=== PATIENT | female | born 1995 | race Caucasian/White ===

== ENCOUNTER 2017-04-24 03:33 | Emergency (ER) | payer OTHER ==
--- NOTE | 2017-04-24 05:37 | ED CLINICAL REPORT ---
Clinical Report - Physicians/Mid Levels [facility] [address] [place] [address] 04/24/2017 3:35 Patient: ELVIRA MARSH Time Seen: 04:00 Apr 24 2017. Arrived- By private vehicle. Historian- patient. CPT: ER phys charges level 4 (#[id number]). HISTORY OF PRESENT ILLNESS Chief Complaint: ABDOMINAL PAIN and VOMITING and NAUSEA. At its maximum, severity described as moderate. When seen in the E.D., severity described as moderate. Modifying factors. Not worsened by anything. Not relieved by anything. This started yesterday ( pt c/o abd and epigastric pain since yesterday, also with low back pain, N/V pt is 29 weeks .). She has had nausea. and is still present. It is described as "pain" and burning and it is described as located in the epigastric area. The patient has had nausea and loss of appetite. No vomiting or diarrhea. No recent travel. Similar symptoms previously: None. Recent medical care: Not recently seen/assessed. REVIEW OF SYSTEMS No constipation, black stools, hematemesis, difficulty with urination or pain with urination. No urinary frequency, fever, sore throat, chest pain or difficulty breathing. No cough, joint pain, skin rash, chills or back pain. Currently . All systems otherwise negative, except as recorded above. PAST HISTORY 2. Para 0. Currently : EDC: Jul. In 2nd trimester. confirmed with sonogram. Nephrolithiasis. Additional Surgeries: no known surgeries. Medications: None. Allergies: No Known Drug Allergy. SOCIAL HISTORY Never smoker. No alcohol use or drug use. ADDITIONAL NOTES The nursing notes have been reviewed. PHYSICAL EXAM Vital Signs: 04/24/2017 03:38 BP: 124/65. HR: 104. RR: 18. O2 saturation: 99%. Temp: 97.4 F. Pain level now: 9/10. Appearance: Alert. Anxious. Patient in mild distress. Eyes: Eyes normal inspection. ENT: Pharynx normal. Neck: Normal inspection. CVS: Normal heart rate and rhythm. Heart sounds normal. Pulses normal. Respiratory: No respiratory distress. Breath sounds normal. Chest nontender. Abdomen: Soft. Moderate tenderness in the epigastric area with guarding present. Bowel sounds normal. No mass. Back: Normal inspection. Skin: Skin warm. Normal skin color. No rash. Extremities: Extremities exhibit normal ROM. No lower extremity edema. Neuro: Oriented X 3. No motor deficit. No sensory deficit. LABS, X-RAYS, AND EKG Laboratory Tests: CBC w Diff: (NAVIN: 04/24/2017 03:45) ( [facility] 04/24/2017 04:23) Final results Test Result Flag Units (Reference) WHITE BLOOD COUNT 17.6 H K/uL (4.5-11.5) RED BLOOD COUNT 4.19 M/uL (4.00-5.20) HEMOGLOBIN 11.6 L gm/dL (12.0-16.0) HEMATOCRIT 35.8 L % (36.0-46.0) MEAN CELL VOLUME 86 fL (80-100) MEAN CORPUSCULAR HGB 28 pg (26-34) MEAN CORPUSCULAR HGB CONC 32 g/dL (31-37) RED CELL DISTRIBUTION WIDTH 13.6 % (11.6-14.8) PLATELET COUNT 239 K/uL (150-400) LYMPH % 25.5 % (25-40) MONO % 3.8 % (3-14) GRANULOCYTE % 70.7 (53-90) Urine Drug Screen: (NAVIN: 04/24/2017 04:20) ( [facility] 04/24/2017 04:46) Final results Test Result Flag Units (Reference) AMPHETAMINE/METHAMPHETAMINE NEGATIVE (NEGATIVE) BARBITURATE NEGATIVE (NEGATIVE) BENZODIAZEPINE NEGATIVE (NEGATIVE) CANNABINOID NEGATIVE (NEGATIVE) COCAINE NEGATIVE (NEGATIVE) ECSTASY NEGATIVE (NEGATIVE) METHADONE NEGATIVE (NEGATIVE) OPIATE NEGATIVE (NEGATIVE) The urine drug screen is a qualitative screening test fordrug overdose and abuse. All screen results should beconsidered as presumptive.Drugs screened for are as follows:BenzodiazepinesCocaineAmphetamines/MetamphetaminesTHC (Tetrahydrocannabinol)OpiatesBarbituratesEcstasyMethadonePositive results are unconfirmed. For confirmation, notifythe lab for the specimen to be sent to the reference lab.All confirmations must be performed by a differentmethodology.The ingestion of natural herbal and plant productscontaining Ephedra/Ephedra metabolites can produce in urineone or more substances capable of cross reacting withamphetamine/methamphetamine immunoassays. These testsprovide a preliminary result only. A more specificalternative chemical method must be used to obtain aconfirmed analytical result. CMP: (NAVIN: 04/24/2017 03:45) ( MsgRcvd 04/24/2017 04:52) Final results Test Result Flag Units (Reference) GLUCOSE 91 mg/dL (70-110) BUN 5 L mg/dL (7-18) CREATININE 0.5 L mg/dL (0.6-1.3) Estimated GFR >60 mL/min Estimated GFR- >60 mL/min Note: Persistent reduction over 3 months in eGFR<60 mL/min/1.73 m2 defines CKD. Patients with eGFR values>=60 mL/min/1.73 m2 may also have CKD if evidence ofpersistent proteinuria. Additional information may be foundat www.kidney.org. SODIUM 138 mmol/L (136-145) POTASSIUM 3.7 mmol/L (3.5-5.1) CHLORIDE 104 mmol/L (98-107) CARBON DIOXIDE 23 mmol/L (21-32) CALCIUM 8.7 mg/dL (8.5-10.1) TOTAL PROTEIN 7.0 g/dL (6.4-8.2) ALBUMIN 2.8 L g/dL (3.3-5.0) BILIRUBIN, TOTAL 0.4 mg/dL (0.0-1.0) ALKALINE PHOSPHATASE 91 U/L (46-116) AST (SGOT) 20 U/L (15-37) ALT (SGPT) 23 U/L (12-78) LIPASE 107 U/L (73-393) AMYLASE 39 U/L (25-115) BETA HCG, QUANTITATIVE 39853 mIU/mL REFERENCE RANGE:Adult Males: <2 mIU/mLNon- Females: <6 mIU/mL Females:Approximate Approximate hCGGestational Age Range (mIU/mL) 0-1 week 0-501-2 weeks 40-3002-3 weeks 100-26103-3 weeks 500-37987-6 months 5,000-200,0002-3 months 10,000-100,0002nd trimester 3,000-50,0003rd trimester 1,000-50,000 . PROGRESS AND PROCEDURES Course of Care: 05:33 04/24/17. The patient's pain diminished from a 9 down to a 5-year-old after GI cocktail. She was given Carafate 20 mL's and protonics 40 gm po. Patient/family counseled. Disposition: Discharged. Condition: stable and improved. CLINICAL IMPRESSION Gastroesophageal reflux disease with esophagitis (due to and stress.). Second trimester ; positive test in emergency department. Multiple stressors. INSTRUCTIONS No strenuous activity. Avoid alcohol and NSAIDS. NSAIDS include aspirin, ibuprofen (Advil) and naproxen (Aleve). Avoid spicy foods. caffeine. (Head of bed on 6 inch blocks. Reduce stress.). Warnings: Further evaluation is necessary. GENERAL WARNINGS: Return or contact your physician immediately if your condition worsens or changes unexpectedly, if not improving as expected, or if other problems arise. Prescription Medications: Zofran (orally disintegrating tablets) 4 mg: take 1 orally every 6 hours as needed for nausea. Dispense ten (10). No refill. Carafate take 1 orally four times daily (before meals and at bedtime) for 10 days. Dispense forty (40). No refills. Prilosec 40 mg capsules: take 1 capsule orally every day for 10 days. Dispense ten (10). No refill. Follow-up: Follow up with an heel nailing machine operator tomorrow Sunday as scheduled. Understanding of the discharge instructions verbalized by patient. Discharge instructions reviewed with and understanding was verbalized by spouse. Follow-up with: [facility], , , [address], , [place], [id number] Follow up in one week. Call for the next available appointment. (Electronically signed by Mikhail Irwin MD 04/25/2017 23:25)
--- NOTE | 2017-04-24 05:37 | ED CLINICAL REPORT ---
Clinical Report - Physicians/Mid Levels [facility] [address] [place] [address] 04/24/2017 3:35 Patient: ELVIRA MARSH Time Seen: 04:00 Apr 24 2017. Arrived- By private vehicle. Historian- patient. CPT: ER phys charges level 4 (#[id number]). HISTORY OF PRESENT ILLNESS Chief Complaint: ABDOMINAL PAIN and VOMITING and NAUSEA. At its maximum, severity described as moderate. When seen in the E.D., severity described as moderate. Modifying factors. Not worsened by anything. Not relieved by anything. This started yesterday ( pt c/o abd and epigastric pain since yesterday, also with low back pain, N/V pt is 29 weeks .). She has had nausea. and is still present. It is described as "pain" and burning and it is described as located in the epigastric area. The patient has had nausea and loss of appetite. No vomiting or diarrhea. No recent travel. Similar symptoms previously: None. Recent medical care: Not recently seen/assessed. REVIEW OF SYSTEMS No constipation, black stools, hematemesis, difficulty with urination or pain with urination. No urinary frequency, fever, sore throat, chest pain or difficulty breathing. No cough, joint pain, skin rash, chills or back pain. Currently . All systems otherwise negative, except as recorded above. PAST HISTORY 2. Para 0. Currently : EDC: Jul. In 2nd trimester. confirmed with sonogram. Nephrolithiasis. Additional Surgeries: no known surgeries. Medications: None. Allergies: No Known Drug Allergy. SOCIAL HISTORY Never smoker. No alcohol use or drug use. ADDITIONAL NOTES The nursing notes have been reviewed. PHYSICAL EXAM Vital Signs: 04/24/2017 03:38 BP: 124/65. HR: 104. RR: 18. O2 saturation: 99%. Temp: 97.4 F. Pain level now: 9/10. Appearance: Alert. Anxious. Patient in mild distress. Eyes: Eyes normal inspection. ENT: Pharynx normal. Neck: Normal inspection. CVS: Normal heart rate and rhythm. Heart sounds normal. Pulses normal. Respiratory: No respiratory distress. Breath sounds normal. Chest nontender. Abdomen: Soft. Moderate tenderness in the epigastric area with guarding present. Bowel sounds normal. No mass. Back: Normal inspection. Skin: Skin warm. Normal skin color. No rash. Extremities: Extremities exhibit normal ROM. No lower extremity edema. Neuro: Oriented X 3. No motor deficit. No sensory deficit. LABS, X-RAYS, AND EKG Laboratory Tests: CBC w Diff: (NAVIN: 04/24/2017 03:45) ( [facility] 04/24/2017 04:23) Final results Test Result Flag Units (Reference) WHITE BLOOD COUNT 17.6 H K/uL (4.5-11.5) RED BLOOD COUNT 4.19 M/uL (4.00-5.20) HEMOGLOBIN 11.6 L gm/dL (12.0-16.0) HEMATOCRIT 35.8 L % (36.0-46.0) MEAN CELL VOLUME 86 fL (80-100) MEAN CORPUSCULAR HGB 28 pg (26-34) MEAN CORPUSCULAR HGB CONC 32 g/dL (31-37) RED CELL DISTRIBUTION WIDTH 13.6 % (11.6-14.8) PLATELET COUNT 239 K/uL (150-400) LYMPH % 25.5 % (25-40) MONO % 3.8 % (3-14) GRANULOCYTE % 70.7 (53-90) Urine Drug Screen: (NAVIN: 04/24/2017 04:20) ( [facility] 04/24/2017 04:46) Final results Test Result Flag Units (Reference) AMPHETAMINE/METHAMPHETAMINE NEGATIVE (NEGATIVE) BARBITURATE NEGATIVE (NEGATIVE) BENZODIAZEPINE NEGATIVE (NEGATIVE) CANNABINOID NEGATIVE (NEGATIVE) COCAINE NEGATIVE (NEGATIVE) ECSTASY NEGATIVE (NEGATIVE) METHADONE NEGATIVE (NEGATIVE) OPIATE NEGATIVE (NEGATIVE) The urine drug screen is a qualitative screening test fordrug overdose and abuse. All screen results should beconsidered as presumptive.Drugs screened for are as follows:BenzodiazepinesCocaineAmphetamines/MetamphetaminesTHC (Tetrahydrocannabinol)OpiatesBarbituratesEcstasyMethadonePositive results are unconfirmed. For confirmation, notifythe lab for the specimen to be sent to the reference lab.All confirmations must be performed by a differentmethodology.The ingestion of natural herbal and plant productscontaining Ephedra/Ephedra metabolites can produce in urineone or more substances capable of cross reacting withamphetamine/methamphetamine immunoassays. These testsprovide a preliminary result only. A more specificalternative chemical method must be used to obtain aconfirmed analytical result. CMP: (NAVIN: 04/24/2017 03:45) ( MsgRcvd 04/24/2017 04:52) Final results Test Result Flag Units (Reference) GLUCOSE 91 mg/dL (70-110) BUN 5 L mg/dL (7-18) CREATININE 0.5 L mg/dL (0.6-1.3) Estimated GFR >60 mL/min Estimated GFR- >60 mL/min Note: Persistent reduction over 3 months in eGFR<60 mL/min/1.73 m2 defines CKD. Patients with eGFR values>=60 mL/min/1.73 m2 may also have CKD if evidence ofpersistent proteinuria. Additional information may be foundat www.kidney.org. SODIUM 138 mmol/L (136-145) POTASSIUM 3.7 mmol/L (3.5-5.1) CHLORIDE 104 mmol/L (98-107) CARBON DIOXIDE 23 mmol/L (21-32) CALCIUM 8.7 mg/dL (8.5-10.1) TOTAL PROTEIN 7.0 g/dL (6.4-8.2) ALBUMIN 2.8 L g/dL (3.3-5.0) BILIRUBIN, TOTAL 0.4 mg/dL (0.0-1.0) ALKALINE PHOSPHATASE 91 U/L (46-116) AST (SGOT) 20 U/L (15-37) ALT (SGPT) 23 U/L (12-78) LIPASE 107 U/L (73-393) AMYLASE 39 U/L (25-115) BETA HCG, QUANTITATIVE 81999 mIU/mL REFERENCE RANGE:Adult Males: <2 mIU/mLNon- Females: <6 mIU/mL Females:Approximate Approximate hCGGestational Age Range (mIU/mL) 0-1 week 0-501-2 weeks 40-3002-3 weeks 100-07662-8 weeks 500-57186-8 months 5,000-200,0002-3 months 10,000-100,0002nd trimester 3,000-50,0003rd trimester 1,000-50,000 . PROGRESS AND PROCEDURES Course of Care: 05:33 04/24/17. The patient's pain diminished from a 9 down to a 5-year-old after GI cocktail. She was given Carafate 20 mL's and protonics 40 gm po. Patient/family counseled. Disposition: Discharged. Condition: stable and improved. CLINICAL IMPRESSION Gastroesophageal reflux disease with esophagitis (due to and stress.). Second trimester ; positive test in emergency department. Multiple stressors. INSTRUCTIONS No strenuous activity. Avoid alcohol and NSAIDS. NSAIDS include aspirin, ibuprofen (Advil) and naproxen (Aleve). Avoid spicy foods. caffeine. (Head of bed on 6 inch blocks. Reduce stress.). Warnings: Further evaluation is necessary. GENERAL WARNINGS: Return or contact your physician immediately if your condition worsens or changes unexpectedly, if not improving as expected, or if other problems arise. Prescription Medications: Zofran (orally disintegrating tablets) 4 mg: take 1 orally every 6 hours as needed for nausea. Dispense ten (10). No refill. Carafate take 1 orally four times daily (before meals and at bedtime) for 10 days. Dispense forty (40). No refills. Prilosec 40 mg capsules: take 1 capsule orally every day for 10 days. Dispense ten (10). No refill. Follow-up: Follow up with an art history instructor tomorrow Sunday as scheduled. Understanding of the discharge instructions verbalized by patient. Discharge instructions reviewed with and understanding was verbalized by spouse. Follow-up with: [facility], , , [address], , [place], [id number] Follow up in one week. Call for the next available appointment. (Electronically signed by Mikhail Irwin MD 04/25/2017 23:25)
--- NOTE | 2017-04-24 05:37 | ED NURSING NOTES ---
Clinical Report - Nurses [facility] [address] [place] [address] 04/24/2017 3:35 Patient: ELVIRA MARSH TRIAGE Triage time 03:38. Acuity: LEVEL 3. Chief Complaint: ABDOMINAL PAIN, NAUSEA and VOMITING. --03:46 Puja Velázquez R.N. 03:38 04/24/17. BP: 124/65 taken on the left arm, while lying. HR: 104 (regular and tachycardic). RR: 18 (regular and unlabored). O2 saturation: 99% on room air. Temp: 97.4 F (oral). Pain level now: 07/15. --03:46 Puja Velázquez R.N. Weight: 93.4 kg stated. Height/Length: 60 inches Per Patient. BMI: 40.2. Growth Chart Percentile: Weight: 97.9%. Height/Length: 4.6%. --03:40 Puja Velázquez R.N. Medications None. --03:42 Puja Velázquez R.N. Allergies No Known Drug Allergy. --03:42 Puja Velázquez R.N. History Arrived by private vehicle. Historian: patient. Accompanied by family. Primary physician ([facility]). This started last night. ( pt c/o abd and epigastric pain since yesterday, also with low back pain, N/V pt is 29 weeks .). She has had nausea. PAST MEDICAL HX: Immunizations: up-to-date. 2. Para 0. Currently : EDC: Jul. In 2nd trimester. confirmed with sonogram. SOCIAL HX: Never smoker. No alcohol use or drug use. No infectious disease exposure. No known contact with a sick individual. ABUSE ASSESSMENT: No report of abuse. SELF HARM ASSESSMENT: A self harm assessment was performed. The patient answered "no" to the question "Have you recently felt down, depressed, or hopeless?", "Have you noticed less interest or pleasure in doing things?", "Do you have thoughts of harming or killing yourself?", "Are you here because you tried to hurt yourself?", "Have you ever tried to hurt yourself before today?", "Have you recently had thoughts about harming or killing others?" and "Do you have any dangerous items in your possession?". FALL RISK ASSESSMENT: Fall risk assessment completed. No fall risk identified. NUTRITIONAL RISK ASSESSMENT: The nutritional risk assessment revealed no deficiencies. FUNCTIONAL ASSESSMENT: Functional assessment: no impairments noted. LEARNING NEEDS ASSESSMENT: The learning needs assessment revealed no barriers. SKIN INTEGRITY ASSESSMENT: Skin integrity risk assessment completed. No skin integrity risk identified. --03:46 Puja Velázquez R.N. PROBLEMS: Nephrolithiasis. --03:42 Puja Velázquez R.N. ADDITIONAL SURGERIES: no known surgeries. Interventions ID band on patient. --03:46 Puja Velázquez R.N. PHYSICAL ASSESSMENT To room via wheelchair. GENERAL / NEURO / PSYCH: Alert. Oriented X 4. Appears in pain and anxious. HEENT: Mucous membranes are pink. RESPIRATORY: Respirations not labored. Breath sounds within normal limits. CVS: Normal sinus rhythm noted. Capillary refill less than 2 seconds. GI / : The patient has had constant nausea. Abdomen soft. Abdominal tenderness in the epigastric area. Bowel sounds within normal limits. No urethral discharge or vaginal discharge. SKIN: Skin is warm and dry. --03:47 Puja Velázquez R.N. NURSING PROGRESS NOTES Patient gowned. Two patient identifiers checked. Call light placed in reach. Side rails up x 2. Bed placed in lowest position. Brakes of bed on. --03:47 Puja Velázquez R.N. Patient ready for evaluation- chart flagged. --03:47 Puja Velázquez R.N. 04:00 04/24/2017 Site #1 started via IV in the right antecubital space with an 20g angiocath, with aseptic technique and good blood return; one attempt. Blood drawn: rainbow set. Labeled in the presence of the patient and sent to the lab. Saline lock flushed with 10 mL saline. --04:10 Puja Velázquez R.N. 04:08 04/24/2017 Zofran (Ondansetron HCl) IVP 4 mg given over 2 minute(s) via site #1. Allergies verified and confirmed 5 rights. IV patency established. IV site checked: no pain, redness, or swelling. IV flushed thoroughly pre- and post-medication administration. IVP given by RN. --04:10 Puja Velázquez R.N. 04:13 04/24/2017 GI COCKTAIL WHITE (Simethicone) PO Oral Suspension 50 mL given. Allergies verified and confirmed 5 rights. --04:13 Puja Velázquez R.N. 04:15 04/24/2017 Started bag #1 1000 mL IV Fluids IV NS (Saline); at 500 mL/hr over 2 hour(s) via site #1 via IV pump. Allergies verified and confirmed 5 rights. IV patency established. IV site checked: no pain, redness, or swelling. IV flushed thoroughly pre- and post-medication administration. --04:26 Puja Velázquez R.N. 04:35 04/24/2017 Carafate (Sucralfate) PO Oral Suspension 2 gm given. Allergies verified and confirmed 5 rights. --04:36 Sarika Patten R.N. ( head of bed raised, pt instructed to remain upright to let medication work.). --04:37 Sarika Patten R.N. HEART TONES: heart tones present to the right lower quadrant (146 05:36). --05:37 Puja Velázquez R.N. 05:43 04/24/2017 GI COCKTAIL WHITE (Simethicone) PO Oral Suspension 30 mL given. Allergies verified and confirmed 5 rights. --05:45 Puja Velázquez R.N. 05:44 04/24/2017 Protonix (Pantoprazole Sodium) PO Tablets 40 mg given. Allergies verified and confirmed 5 rights. --05:45 Puja Velázquez R.N. 05:46 04/24/2017 Site #1 removed upon discharge. Catheter intact. Manual pressure and bandage applied. --05:46 Puja Velázquez R.N. 05:46 04/24/2017 IV Fluids IV NS Discontinued: STOPPED upon discharge. Total amount infused: 750 mL. IV patency established. IV site checked: no pain, redness, or swelling. IV flushed thoroughly. --05:46 Puja Velázquez R.N. DISPOSITION / DISCHARGE Departure time: 0550. Condition at departure: improved and stable. No learning barriers present. Discharge instructions provided and reviewed with the patient. Reviewed medication(s) side effects, precautions, dosing and course information. Prescription(s) given to the patient. Reviewed referral to family practice for followup. Activity restrictions (rest) reviewed. Patient verbalized understanding. Written instructions provided in [place]. The patient was discharged home and accompanied by spouse. She left the Emergency Department ambulatory and via private vehicle. Spouse driving. --05:56 Puja Velázquez R.N. 05:50 04/24/17. BP: 113/71 taken on the left arm, while lying. HR: 97 (regular and normal rate). RR: 18 (regular and unlabored). O2 saturation: 99% on room air. Temp: deferred. Pain level now: 12/15. --05:56 Puja Velázquez R.N. Locked/Released at 04/24/2017 5:57 by Puja Velázquez R.N.
--- NOTE | 2017-04-24 05:38 | ED ORDER SUMMARY ---
..... Patient: ELVIRA MARSH OrderSheet [facility] VisitID: [id number] [place] [address] 21y, F Registration Date/Time: 04/24/2017 ORDER SHEET Weight: 93.4 kg (stated) Allergies: No Known Drug Allergy GENERAL ORDERS: CBC w Diff Urgent (04:08 04/24/2017 Jose Antonio GUALLPA) (4:09 Areli R.N.) CMP Urgent (04:08 04/24/2017 Jose Antonio GUALLPA) (4:09 Areli R.N.) Amylase Urgent (04:08 04/24/2017 Jose Antonio GUALLPA) (4:09 Areli R.N.) Lipase Urgent (04:08 04/24/2017 Jose Antonio GUALLPA) (4:09 Areli R.N.) Serum Quantitative Urgent (04:08 04/24/2017 Jose Antonio GUALLPA) (4:09 Areli R.N.) Urine Drug Screen Urgent (04:15 04/24/2017 Jose Antonio GUALLPA) (Ack 4:15 IJurca ER Tech1) (4:25 Areli R.N.) MEDICATION ORDERS: GI Cocktail WHITE PO 50 mL (NOW) (04:09 04/24/2017 Jose Antonio GUALLPA) (4:13 Areli R.N.) Carafate PO 20 ml (NOW) (04:25 04/24/2017 Jose Antonio GUALLPA) (Ack 4:33 DESEANollier R.N.) (4:36 Taz R.N.) GI Cocktail WHITE PO 30 mL (NOW) (05:32 04/24/2017 Jose Antonio GUALLPA) (5:45 Areli R.N.) Protonix PO 40 mg (NOW) (05:34 04/24/2017 Jose Antonio GUALLPA) (5:45 Areli R.N.) IV FLUIDS: IV NS : initial bolus none -, then 500 mL/hr for 2h (NOW); Routine (04:04/24/2017 Jose Antonio GUALLPA) (4:26 Areli R.N.) Zofran IV 4 mg (NOW) (04:09 04/24/2017 Jose Antonio GUALLPA) (4:10 Areli Valle) ORDER SHEET NOTES: [Electronically signed by Puja Velázquez R.N. (05:57 04/24/2017)] [Electronically signed by Mikhail Irwin MD (23:25 04/25/2017)] [Electronically locked/signed by Puja Velázquez R.N. (05:57 04/24/2017)]
--- NOTE | 2017-04-24 05:38 | ED ORDER SUMMARY ---
..... Patient: ELVIRA MARSH OrderSheet [facility] VisitID: [id number] [place] [address] 21y, F Registration Date/Time: 04/24/2017 ORDER SHEET Weight: 93.4 kg (stated) Allergies: No Known Drug Allergy GENERAL ORDERS: CBC w Diff Urgent (04:08 04/24/2017 Jose Antonio GUALLPA) (4:09 Areli R.N.) CMP Urgent (04:08 04/24/2017 Jose Antonio GUALLPA) (4:09 Areli R.N.) Amylase Urgent (04:08 04/24/2017 Jose Antonio GUALLPA) (4:09 Areli R.N.) Lipase Urgent (04:08 04/24/2017 Jose Antonio GUALLPA) (4:09 Areli R.N.) Serum Quantitative Urgent (04:08 04/24/2017 Jose Atnonio GUALLPA) (4:09 Areli R.N.) Urine Drug Screen Urgent (04:15 04/24/2017 Jose Antonio GUALLPA) (Ack 4:15 IJurca ER Tech1) (4:25 Areli R.N.) MEDICATION ORDERS: GI Cocktail WHITE PO 50 mL (NOW) (04:09 04/24/2017 Jose Antonio GUALLPA) (4:13 Areli R.N.) Carafate PO 20 ml (NOW) (04:25 04/24/2017 Jose Antonio GUALLPA) (Ack 4:33 DESEANollier R.N.) (4:36 Taz R.N.) GI Cocktail WHITE PO 30 mL (NOW) (05:32 04/24/2017 Jose Antonio GUALLPA) (5:45 Areli R.N.) Protonix PO 40 mg (NOW) (05:34 04/24/2017 Jose Antonio GUALLPA) (5:45 Areli R.N.) IV FLUIDS: IV NS : initial bolus none -, then 500 mL/hr for 2h (NOW); Routine (04:04/24/2017 Jose Antonio GUALLPA) (4:26 Areli R.N.) Zofran IV 4 mg (NOW) (04:09 04/24/2017 Jose Antonio GUALLPA) (4:10 Areli Valle) ORDER SHEET NOTES: [Electronically signed by Puja Velázquez R.N. (05:57 04/24/2017)] [Electronically signed by Mikhail Irwin MD (23:25 04/25/2017)] [Electronically locked/signed by Puja Velázquez R.N. (05:57 04/24/2017)]
--- NOTE | 2017-04-25 23:25 | ED DISCHARGE INSTRUCTIONS ---
Patient: ELVIRA MARSH General Instructions [facility] VisitID: [id number] [address], [place] [address] 21y, F Registration Date/Time: 04/24/2017 Gastroesophageal reflux disease with esophagitis (due to and stress.). Second trimester ; positive test in emergency department. Multiple stressors. INSTRUCTIONS No strenuous activity. Avoid alcohol and NSAIDS. NSAIDS include aspirin, ibuprofen (Advil) and naproxen (Aleve). Avoid spicy foods. caffeine. (Head of bed on 6 inch blocks. Reduce stress.). Warnings: Further evaluation is necessary. GENERAL WARNINGS: Return or contact your physician immediately if your condition worsens or changes unexpectedly, if not improving as expected, or if other problems arise. Prescription Medications: Zofran (orally disintegrating tablets) 4 mg: take 1 orally every 6 hours as needed for nausea. Dispense ten (10). No refill. Carafate take 1 orally four times daily (before meals and at bedtime) for 10 days. Dispense forty (40). No refills. Prilosec 40 mg capsules: take 1 capsule orally every day for 10 days. Dispense ten (10). No refill. Follow-up: Follow up with an glove cuffer tomorrow Sunday as scheduled. Understanding of the discharge instructions verbalized by patient. Discharge instructions reviewed with and understanding was verbalized by spouse. Follow-up with: [facility], , , [address], , [facility] [id number] Follow up in one week. Call for the next available appointment. ADDITIONAL INFORMATION GERD (Adult) The esophagus is a tube that carries food from the mouth to the stomach. A valve at the lower end of the esophagus prevents stomach acid from flowing upward. If this valve does not work properly, acid from the stomach enters the esophagus. If this occurs over and over, the acid will injure the lining of the esophagus. This condition is called GERD (gastroesophageal reflux disease) or acid reflux. When stomach acid flows upward into the esophagus, it causes burning, pressure or sharp pain in the upper abdomen or mid to lower chest. The pain can spread to the neck, back, or shoulder, similar to heart pain (angina). There may be belching, an acid taste in the back of the throat, chronic cough, or sore throat or hoarseness. GERD symptoms often occur during the day after a big meal, but it can also occur at night when lying down. Smoking,as well as drinking alcohol, increases the risk of GERD. GERD is a chronic condition. Once it begins, it is often lifelong. Treatment includes changes in eating habits and the use of acid salina medications to decrease the amount of acid in the stomach. Symptoms often improve with treatment, but if treatment is stopped, the symptoms usually return after a few months. So most persons with GERD will need to continue treatment. Home Care: Take the prescribed acid salina medication for the full course of treatment even if you begin to feel better sooner. This medication can take up to several days to fully control your symptoms. If you cant afford the prescribed medication, you can try [id number] acid blockers, such as Pepcid AC, Tagamet, Zantac, or Aciphex. If these do not relieve your symptoms, a stronger acid-salina can be tried, such as Prilosec OTC. You can use antacids, such as Tums, Rolaids, Mylanta, or Maalox, for pain. This will be useful the first few days after starting acid blockers when the blockers havent started working yet. Follow the directions on the label. Liquid antacids may work better than tablets. Note that antacids can interfere with absorption of certain medications. Specifically, do not take Tagamet (cimetidine), Zantac (ranitidine), or Carafate (sucralfate) within 1 hour of taking an antacid. Talk with your pharmacist if you have any questions. Limit or avoid fatty, fried, and spicy foods, as well as coffee, chocolate, mint, and foods with high acid content such as tomatoes and citrus fruit and juices (orange, grapefruit, lemon). Avoid alcohol and smoking. Dont eat large meals, especially at night. Frequent, smaller meals are best. Do not lie down right after eating. And dont eat anything 3 hours before going to bed. If you are overweight, losing weight will reduce symptoms. Women should not wear corsets or girdles because this increases pressure on the stomach and worsens reflux. If your symptoms occur during sleep, use a foam wedge to elevate your upper body (not just your head.) Or, place 4" blocks under the head of your bed. Follow Up with your doctor or as advised by our staff. Further testing may be needed. If you do not begin to improve over the next 4 days, contact your doctor. If you had an x-ray, CT scan, or ECG (electrocardiogram), it will be reviewed by a specialist. Youll be notified of any new findings that affect your care. Get Prompt Medical Attention if any of the following occur: Stomach pain gets worse or moves to the lower right abdomen (appendix area) Chest pain appears or gets worse, or spreads to the back, neck, shoulder, or arm Frequent vomiting (cant keep down liquids) Blood in the stool or vomit (red or black in color) Feeling weak or dizzy, fainting, or trouble breathing Fever of 100.4F (38C) or higher, or as directed by your healthcare provider [place] Diet A bland diet is used for patients with an upset stomach. It consists of foods that are mild and easy to digest. It is better to eat small frequent meals rather than three large meals a day. BEVERAGES OK: Fruit juices, non-caffeinated teas and coffee, non-carbonated wilson AVOID: Carbonated beverage, caffeinated tea and coffee, all alcoholic beverages BREAD OK: Refined white, wheat or rye bread, tra or soda crackers, [place] toast, plain rolls, bagels AVOID: Whole-grain bread CEREAL OK: Refined cereals: cooked or ready to eat AVOID: Whole grain cereals and granola, or those containing bran, seeds or nuts DESSERTS OK: Peanut butter and all others except those to "avoid" AVOID: Chocolate, cocoa, coconut, popcorn, nuts, seeds, jam, marmalade FRUITS OK: Canned, cooked, frozen or fresh fruits without seeds or tough skin AVOID: Olives, skin and seeds of fruit MEATS OK: All fresh or preserved meat, fish and fowl AVOID: Any that are prepared with those spices to "avoid" CHEESE & EGGS OK: Eggs, cottage cheese, cream cheese, other cheeses AVOID: All cheeses made with those spices to "avoid" POTATOES & PASTA OK: Potato, rice, macaroni, noodles, spaghetti AVOID: None SOUPS OK: All soups without heavy seasoning AVOID: Soups made with those spices to "avoid" VEGETABLES OK: Canned, cooked, fresh or frozen mildly flavored vegetables without seeds, skins or coarse fiber AVOID: Vegetables prepared with those spices to "avoid"; skin and seeds of vegetables and those with coarse fiber SPICES OK: Salt, lemon and apache juice, vinegar, all extracts, tigre, cinnamon, thyme, mace, allspice, paprika AVOID: Beggs powder, cloves, pepper, seed spices, garlic, gravy pickles, highly seasoned salad dressings Ondansetron Oral disintegrating tablet What is this medicine? ONDANSETRON (on NATALY se anmol) is used to treat nausea and vomiting caused by chemotherapy. It is also used to prevent or treat nausea and vomiting after surgery. How should I use this medicine? These tablets are made to dissolve in the mouth. Do not try to push the tablet through the foil backing. With dry hands, peel away the foil backing and gently remove the tablet. Place the tablet in the mouth and allow it to dissolve, then swallow. While you may take these tablets with water, it is not necessary to do so. Talk to your parts processor regarding the use of this medicine in children. Special care may be needed. What side effects may I notice from receiving this medicine? Side effects that you should report to your doctor or health animal care service worker as soon as possible: allergic reactions like skin rash, itching or hives, swelling of the face, lips, or tongue breathing problems dizziness fast or irregular heartbeat feeling faint or lightheaded, falls fever and chills swelling of the hands and feet tightness in the chest Side effects that usually do not require medical attention (report to your doctor or health animal care service worker if they continue or are bothersome): constipation or diarrhea headache What may interact with this medicine? Do not take this medicine with any of the following medications: -apomorphine -cisapride -dofetilide -dronedarone -pimozide -thioridazine -ziprasidone This medicine may also interact with the following medications: -carbamazepine -phenytoin -rifampicin -tramadol -other medicines that prolong the QT interval (cause an abnormal heart rhythm) What if I miss a dose? If you miss a dose, take it as soon as you can. If it is almost time for your next dose, take only that dose. Do not take double or extra doses. Where should I keep my medicine? Keep out of the reach of children. Store between 2 and 30 degrees C (36 and 86 degrees F). Throw away any unused medicine after the expiration date. What should I tell my health care provider before I take this medicine? They need to know if you have any of these conditions: heart disease history of irregular heartbeat liver disease low levels of magnesium or potassium in the blood an unusual or allergic reaction to ondansetron, granisetron, other medicines, foods, dyes, or preservatives or trying to get breast-feeding What should I watch for while using this medicine? Check with your doctor or health animal care service worker as soon as you can if you have any sign of an allergic reaction. Sucralfate Oral tablet What is this medicine? SUCRALFATE (NICA leonor fate) helps to treat ulcers of the intestine. How should I use this medicine? Take this medicine by mouth with a glass of water. Follow the directions on the prescription label. This medicine works best if you take it on an empty stomach, 1 hour before meals. Take your doses at regular intervals. Do not take your medicine more often than directed. Do not stop taking except on your doctor's advice. Talk to your parts processor regarding the use of this medicine in children. Special care may be needed. What side effects may I notice from receiving this medicine? Side effects that you should report to your doctor or health animal care service worker as soon as possible: allergic reactions like skin rash, itching or hives, swelling of the face, lips, or tongue difficulty breathing Side effects that usually do not require medical attention (report to your doctor or health animal care service worker if they continue or are bothersome): back pain constipation drowsy, dizzy dry mouth headache stomach upset, gas trouble sleeping What may interact with this medicine? antacid cimetidine digoxin ketoconazole phenytoin quinidine ranitidine some antibiotics like ciprofloxacin, norfloxacin, and ofloxacin theophylline thyroid hormones warfarin What if I miss a dose? If you miss a dose, take it as soon as you can. If it is almost time for your next dose, take only that dose. Do not take double or extra doses. Where should I keep my medicine? Keep out of the reach of children. Store at room temperature between 15 and 30 degrees C (59 and 86 degrees F). Keep container tightly closed. Throw away any unused medicine after the expiration date. What should I tell my health care provider before I take this medicine? They need to know if you have any of these conditions: kidney disease an unusual or allergic reaction to sucralfate, other medicines, foods, dyes, or preservatives or trying to get breast-feeding What should I watch for while using this medicine? Visit your doctor or health animal care service worker for regular check ups. Let your doctor know if your symptoms do not improve or if you feel worse. Antacids should not be taken within one half hour before or after this medicine. Omeprazole Magnesium Gastro-resistant tablet What is this medicine? OMEPRAZOLE (oh ME pray zol) prevents the production of acid in the stomach. It is used to treat the symptoms of heartburn. You can buy this medicine without a prescription. This product is not for long-term use, unless otherwise directed by your doctor or health animal care service worker. How should I use this medicine? Take this medicine by mouth. Follow the directions on the product label. If you are taking this medicine without a prescription, take one tablet every day. Do not use for longer than 14 days or repeat a course of treatment more often than every 4 months unless directed by a doctor or healthcare professional. Take your dose at regular intervals every 24 hours. Swallow the tablet whole with a drink of water. Do not crush, break or chew. This medicine works best if taken on an empty stomach 30 minutes before breakfast. If you are using this medicine with the prescription of your doctor or healthcare professional, follow the directions you were given. Do not take your medicine more often than directed. Talk to your parts processor regarding the use of this medicine in children. Special care may be needed. What side effects may I notice from receiving this medicine? Side effects that you should report to your doctor or health animal care service worker as soon as possible: allergic reactions like skin rash, itching or hives, swelling of the face, lips, or tongue bone, muscle or joint pain breathing problems chest pain or chest tightness dark yellow or brown urine diarrhea dizziness fast, irregular heartbeat feeling faint or lightheaded fever or sore throat muscle spasm palpitations redness, blistering, peeling or loosening of the skin, including inside the mouth seizures tremors unusual bleeding or bruising unusually weak or tired yellowing of the eyes or skin Side effects that usually do not require medical attention (Report these to your doctor or health animal care service worker if they continue or are bothersome.): constipation dry mouth headache loose stools nausea What may interact with this medicine? Do not take this medicine with any of the following medications: atazanavir clopidogrel nelfinavir This medicine may also interact with the following medications: ampicillin certain medicines for anxiety or sleep certain medicines that treat or prevent blood clots like warfarin cyclosporine diazepam digoxin disulfiram iron salts phenytoin prescription medicine for fungal or yeast infection like itraconazole, ketoconazole, voriconazole saquinavir tacrolimus What if I miss a dose? If you miss a dose, take it as soon as you can. If it is almost time for your next dose, take only that dose. Do not take double or extra doses. Where should I keep my medicine? Keep out of the reach of children. Store at room temperature between 20 and 25 degrees C (68 and 77 degrees F). Protect from light and moisture. Throw away any unused medicine after the expiration date. What should I tell my health care provider before I take this medicine? They need to know if you have any of these conditions: black or bloody stools chest pain difficulty swallowing have had heartburn for over 3 months have heartburn with dizziness, lightheadedness or sweating liver disease stomach pain unexplained weight loss vomiting with blood wheezing an unusual or allergic reaction to omeprazole, other medicines, foods, dyes, or preservatives or trying to get breast-feeding What should I watch for while using this medicine? It can take several days before your heartburn gets better. Check with your doctor or health animal care service worker if your condition does not start to get better, or if it gets worse. Do not treat diarrhea with over the counter products. Contact your doctor if you have diarrhea that lasts more than 2 days or if it is severe and watery. Do not treat yourself for heartburn with this medicine for more than 14 days in a row. You should only use this medicine for a 2-week treatment period once every 4 months. If your symptoms return shortly after your therapy is complete, or within the 4 month time frame, call your doctor or health animal care service worker. You have been given the following additional information: GERD (Adult) Diet, Custer (Adult) Ondansetron Oral disintegrating tablet Sucralfate Oral tablet Omeprazole Magnesium Gastro-resistant tablet No strenuous activity. (Electronically signed by Mikhail Irwin MD 04/25/2017 23:25)
--- NOTE | 2017-04-25 23:25 | ED DISCHARGE INSTRUCTIONS ---
Patient: ELVIRA MARSH General Instructions [facility] VisitID: [id number] [address], [place] [address] 21y, F Registration Date/Time: 04/24/2017 Gastroesophageal reflux disease with esophagitis (due to and stress.). Second trimester ; positive test in emergency department. Multiple stressors. INSTRUCTIONS No strenuous activity. Avoid alcohol and NSAIDS. NSAIDS include aspirin, ibuprofen (Advil) and naproxen (Aleve). Avoid spicy foods. caffeine. (Head of bed on 6 inch blocks. Reduce stress.). Warnings: Further evaluation is necessary. GENERAL WARNINGS: Return or contact your physician immediately if your condition worsens or changes unexpectedly, if not improving as expected, or if other problems arise. Prescription Medications: Zofran (orally disintegrating tablets) 4 mg: take 1 orally every 6 hours as needed for nausea. Dispense ten (10). No refill. Carafate take 1 orally four times daily (before meals and at bedtime) for 10 days. Dispense forty (40). No refills. Prilosec 40 mg capsules: take 1 capsule orally every day for 10 days. Dispense ten (10). No refill. Follow-up: Follow up with an floor director tomorrow Sunday as scheduled. Understanding of the discharge instructions verbalized by patient. Discharge instructions reviewed with and understanding was verbalized by spouse. Follow-up with: [facility], , , [address], , [facility] [id number] Follow up in one week. Call for the next available appointment. ADDITIONAL INFORMATION GERD (Adult) The esophagus is a tube that carries food from the mouth to the stomach. A valve at the lower end of the esophagus prevents stomach acid from flowing upward. If this valve does not work properly, acid from the stomach enters the esophagus. If this occurs over and over, the acid will injure the lining of the esophagus. This condition is called GERD (gastroesophageal reflux disease) or acid reflux. When stomach acid flows upward into the esophagus, it causes burning, pressure or sharp pain in the upper abdomen or mid to lower chest. The pain can spread to the neck, back, or shoulder, similar to heart pain (angina). There may be belching, an acid taste in the back of the throat, chronic cough, or sore throat or hoarseness. GERD symptoms often occur during the day after a big meal, but it can also occur at night when lying down. Smoking,as well as drinking alcohol, increases the risk of GERD. GERD is a chronic condition. Once it begins, it is often lifelong. Treatment includes changes in eating habits and the use of acid salina medications to decrease the amount of acid in the stomach. Symptoms often improve with treatment, but if treatment is stopped, the symptoms usually return after a few months. So most persons with GERD will need to continue treatment. Home Care: Take the prescribed acid salina medication for the full course of treatment even if you begin to feel better sooner. This medication can take up to several days to fully control your symptoms. If you cant afford the prescribed medication, you can try [id number] acid blockers, such as Pepcid AC, Tagamet, Zantac, or Aciphex. If these do not relieve your symptoms, a stronger acid-salina can be tried, such as Prilosec OTC. You can use antacids, such as Tums, Rolaids, Mylanta, or Maalox, for pain. This will be useful the first few days after starting acid blockers when the blockers havent started working yet. Follow the directions on the label. Liquid antacids may work better than tablets. Note that antacids can interfere with absorption of certain medications. Specifically, do not take Tagamet (cimetidine), Zantac (ranitidine), or Carafate (sucralfate) within 1 hour of taking an antacid. Talk with your pharmacist if you have any questions. Limit or avoid fatty, fried, and spicy foods, as well as coffee, chocolate, mint, and foods with high acid content such as tomatoes and citrus fruit and juices (orange, grapefruit, lemon). Avoid alcohol and smoking. Dont eat large meals, especially at night. Frequent, smaller meals are best. Do not lie down right after eating. And dont eat anything 3 hours before going to bed. If you are overweight, losing weight will reduce symptoms. Women should not wear corsets or girdles because this increases pressure on the stomach and worsens reflux. If your symptoms occur during sleep, use a foam wedge to elevate your upper body (not just your head.) Or, place 4" blocks under the head of your bed. Follow Up with your doctor or as advised by our staff. Further testing may be needed. If you do not begin to improve over the next 4 days, contact your doctor. If you had an x-ray, CT scan, or ECG (electrocardiogram), it will be reviewed by a specialist. Youll be notified of any new findings that affect your care. Get Prompt Medical Attention if any of the following occur: Stomach pain gets worse or moves to the lower right abdomen (appendix area) Chest pain appears or gets worse, or spreads to the back, neck, shoulder, or arm Frequent vomiting (cant keep down liquids) Blood in the stool or vomit (red or black in color) Feeling weak or dizzy, fainting, or trouble breathing Fever of 100.4F (38C) or higher, or as directed by your healthcare provider [place] Diet A bland diet is used for patients with an upset stomach. It consists of foods that are mild and easy to digest. It is better to eat small frequent meals rather than three large meals a day. BEVERAGES OK: Fruit juices, non-caffeinated teas and coffee, non-carbonated wilson AVOID: Carbonated beverage, caffeinated tea and coffee, all alcoholic beverages BREAD OK: Refined white, wheat or rye bread, tra or soda crackers, [place] toast, plain rolls, bagels AVOID: Whole-grain bread CEREAL OK: Refined cereals: cooked or ready to eat AVOID: Whole grain cereals and granola, or those containing bran, seeds or nuts DESSERTS OK: Peanut butter and all others except those to "avoid" AVOID: Chocolate, cocoa, coconut, popcorn, nuts, seeds, jam, marmalade FRUITS OK: Canned, cooked, frozen or fresh fruits without seeds or tough skin AVOID: Olives, skin and seeds of fruit MEATS OK: All fresh or preserved meat, fish and fowl AVOID: Any that are prepared with those spices to "avoid" CHEESE & EGGS OK: Eggs, cottage cheese, cream cheese, other cheeses AVOID: All cheeses made with those spices to "avoid" POTATOES & PASTA OK: Potato, rice, macaroni, noodles, spaghetti AVOID: None SOUPS OK: All soups without heavy seasoning AVOID: Soups made with those spices to "avoid" VEGETABLES OK: Canned, cooked, fresh or frozen mildly flavored vegetables without seeds, skins or coarse fiber AVOID: Vegetables prepared with those spices to "avoid"; skin and seeds of vegetables and those with coarse fiber SPICES OK: Salt, lemon and saxman juice, vinegar, all extracts, tigre, cinnamon, thyme, mace, allspice, paprika AVOID: [place] powder, cloves, pepper, seed spices, garlic, gravy pickles, highly seasoned salad dressings Ondansetron Oral disintegrating tablet What is this medicine? ONDANSETRON (on NATALY se anmol) is used to treat nausea and vomiting caused by chemotherapy. It is also used to prevent or treat nausea and vomiting after surgery. How should I use this medicine? These tablets are made to dissolve in the mouth. Do not try to push the tablet through the foil backing. With dry hands, peel away the foil backing and gently remove the tablet. Place the tablet in the mouth and allow it to dissolve, then swallow. While you may take these tablets with water, it is not necessary to do so. Talk to your cd manufacturing supervisor regarding the use of this medicine in children. Special care may be needed. What side effects may I notice from receiving this medicine? Side effects that you should report to your doctor or health residential caregiver as soon as possible: allergic reactions like skin rash, itching or hives, swelling of the face, lips, or tongue breathing problems dizziness fast or irregular heartbeat feeling faint or lightheaded, falls fever and chills swelling of the hands and feet tightness in the chest Side effects that usually do not require medical attention (report to your doctor or health residential caregiver if they continue or are bothersome): constipation or diarrhea headache What may interact with this medicine? Do not take this medicine with any of the following medications: -apomorphine -cisapride -dofetilide -dronedarone -pimozide -thioridazine -ziprasidone This medicine may also interact with the following medications: -carbamazepine -phenytoin -rifampicin -tramadol -other medicines that prolong the QT interval (cause an abnormal heart rhythm) What if I miss a dose? If you miss a dose, take it as soon as you can. If it is almost time for your next dose, take only that dose. Do not take double or extra doses. Where should I keep my medicine? Keep out of the reach of children. Store between 2 and 30 degrees C (36 and 86 degrees F). Throw away any unused medicine after the expiration date. What should I tell my health care provider before I take this medicine? They need to know if you have any of these conditions: heart disease history of irregular heartbeat liver disease low levels of magnesium or potassium in the blood an unusual or allergic reaction to ondansetron, granisetron, other medicines, foods, dyes, or preservatives or trying to get breast-feeding What should I watch for while using this medicine? Check with your doctor or health residential caregiver as soon as you can if you have any sign of an allergic reaction. Sucralfate Oral tablet What is this medicine? SUCRALFATE (NICA leonor fate) helps to treat ulcers of the intestine. How should I use this medicine? Take this medicine by mouth with a glass of water. Follow the directions on the prescription label. This medicine works best if you take it on an empty stomach, 1 hour before meals. Take your doses at regular intervals. Do not take your medicine more often than directed. Do not stop taking except on your doctor's advice. Talk to your cd manufacturing supervisor regarding the use of this medicine in children. Special care may be needed. What side effects may I notice from receiving this medicine? Side effects that you should report to your doctor or health residential caregiver as soon as possible: allergic reactions like skin rash, itching or hives, swelling of the face, lips, or tongue difficulty breathing Side effects that usually do not require medical attention (report to your doctor or health residential caregiver if they continue or are bothersome): back pain constipation drowsy, dizzy dry mouth headache stomach upset, gas trouble sleeping What may interact with this medicine? antacid cimetidine digoxin ketoconazole phenytoin quinidine ranitidine some antibiotics like ciprofloxacin, norfloxacin, and ofloxacin theophylline thyroid hormones warfarin What if I miss a dose? If you miss a dose, take it as soon as you can. If it is almost time for your next dose, take only that dose. Do not take double or extra doses. Where should I keep my medicine? Keep out of the reach of children. Store at room temperature between 15 and 30 degrees C (59 and 86 degrees F). Keep container tightly closed. Throw away any unused medicine after the expiration date. What should I tell my health care provider before I take this medicine? They need to know if you have any of these conditions: kidney disease an unusual or allergic reaction to sucralfate, other medicines, foods, dyes, or preservatives or trying to get breast-feeding What should I watch for while using this medicine? Visit your doctor or health residential caregiver for regular check ups. Let your doctor know if your symptoms do not improve or if you feel worse. Antacids should not be taken within one half hour before or after this medicine. Omeprazole Magnesium Gastro-resistant tablet What is this medicine? OMEPRAZOLE (oh ME pray zol) prevents the production of acid in the stomach. It is used to treat the symptoms of heartburn. You can buy this medicine without a prescription. This product is not for long-term use, unless otherwise directed by your doctor or health residential caregiver. How should I use this medicine? Take this medicine by mouth. Follow the directions on the product label. If you are taking this medicine without a prescription, take one tablet every day. Do not use for longer than 14 days or repeat a course of treatment more often than every 4 months unless directed by a doctor or healthcare professional. Take your dose at regular intervals every 24 hours. Swallow the tablet whole with a drink of water. Do not crush, break or chew. This medicine works best if taken on an empty stomach 30 minutes before breakfast. If you are using this medicine with the prescription of your doctor or healthcare professional, follow the directions you were given. Do not take your medicine more often than directed. Talk to your cd manufacturing supervisor regarding the use of this medicine in children. Special care may be needed. What side effects may I notice from receiving this medicine? Side effects that you should report to your doctor or health residential caregiver as soon as possible: allergic reactions like skin rash, itching or hives, swelling of the face, lips, or tongue bone, muscle or joint pain breathing problems chest pain or chest tightness dark yellow or brown urine diarrhea dizziness fast, irregular heartbeat feeling faint or lightheaded fever or sore throat muscle spasm palpitations redness, blistering, peeling or loosening of the skin, including inside the mouth seizures tremors unusual bleeding or bruising unusually weak or tired yellowing of the eyes or skin Side effects that usually do not require medical attention (Report these to your doctor or health residential caregiver if they continue or are bothersome.): constipation dry mouth headache loose stools nausea What may interact with this medicine? Do not take this medicine with any of the following medications: atazanavir clopidogrel nelfinavir This medicine may also interact with the following medications: ampicillin certain medicines for anxiety or sleep certain medicines that treat or prevent blood clots like warfarin cyclosporine diazepam digoxin disulfiram iron salts phenytoin prescription medicine for fungal or yeast infection like itraconazole, ketoconazole, voriconazole saquinavir tacrolimus What if I miss a dose? If you miss a dose, take it as soon as you can. If it is almost time for your next dose, take only that dose. Do not take double or extra doses. Where should I keep my medicine? Keep out of the reach of children. Store at room temperature between 20 and 25 degrees C (68 and 77 degrees F). Protect from light and moisture. Throw away any unused medicine after the expiration date. What should I tell my health care provider before I take this medicine? They need to know if you have any of these conditions: black or bloody stools chest pain difficulty swallowing have had heartburn for over 3 months have heartburn with dizziness, lightheadedness or sweating liver disease stomach pain unexplained weight loss vomiting with blood wheezing an unusual or allergic reaction to omeprazole, other medicines, foods, dyes, or preservatives or trying to get breast-feeding What should I watch for while using this medicine? It can take several days before your heartburn gets better. Check with your doctor or health residential caregiver if your condition does not start to get better, or if it gets worse. Do not treat diarrhea with over the counter products. Contact your doctor if you have diarrhea that lasts more than 2 days or if it is severe and watery. Do not treat yourself for heartburn with this medicine for more than 14 days in a row. You should only use this medicine for a 2-week treatment period once every 4 months. If your symptoms return shortly after your therapy is complete, or within the 4 month time frame, call your doctor or health residential caregiver. You have been given the following additional information: GERD (Adult) Diet, [place] (Adult) Ondansetron Oral disintegrating tablet Sucralfate Oral tablet Omeprazole Magnesium Gastro-resistant tablet No strenuous activity. (Electronically signed by Mikhail Irwin MD 04/25/2017 23:25)
--- NOTE | 2017-04-25 23:26 | ED MAR SUMMARY ---
..... Medication Administration Record [facility] [address] [place] [address] Patient: ELVIRA MARSH Visit ID: [id number] 21y, F Weight: 93.4 kg Height/Length: 60 in BMI: 40.2 ALLERGIES: No Known Drug Allergy Given 04:08 04/24/2017 Puja Velázqeuz R.N. Medication Administered: ZOFRAN [IVP] (ONDANSETRON HCL), Dose: 4 mg IVP over 2 minute(s), Site: #1 right AC. Medication Ordered: Zofran IV 4 mg (NOW). Given 04:13 04/24/2017 Puja Velázquez R.N. Medication Administered: GI COCKTAIL WHITE [PO] (SIMETHICONE), Dose: 50 mL Oral Suspension PO. Medication Ordered: GI Cocktail WHITE PO 50 mL (NOW). Start 04:15 04/24/2017 Puja Velázquez R.N., Stop 05:46 04/24/2017 Puja Velázquez R.N. Medication Administered: IV NS (SALINE), Dose: IV Fluids over 2 hour(s), Rate: 500 mL/hr, Dispensed: 1000 mL bag, Site: #1 right AC. Medication Ordered: IV NS : initial bolus none -, then 500 mL/hr for 2h (NOW); Routine. Given 04:35 04/24/2017 Sarika Patten R.N. Medication Administered: CARAFATE [PO] (SUCRALFATE), Dose: 2 gm Oral Suspension PO. Medication Ordered: Carafate PO 20 ml (NOW). Given 05:43 04/24/2017 Puja Velázquez R.N. Medication Administered: GI COCKTAIL WHITE [PO] (SIMETHICONE), Dose: 30 mL Oral Suspension PO. Medication Ordered: GI Cocktail WHITE PO 30 mL (NOW). Given 05:44 04/24/2017 Puja Velázquez R.N. Medication Administered: PROTONIX [PO] (PANTOPRAZOLE SODIUM), Dose: 40 mg Tablets PO. Medication Ordered: Protonix PO 40 mg (NOW).
--- NOTE | 2017-04-25 23:26 | ED MED RECONCILIATION SUMMARY ---
Patient: ELVIRA MARSH Medication Reconciliation Report [facility] VisitID: [id number] [place] [address] 21y, F Registration Date/Time: 04/24/2017 Weight: 93.4 kg Height/Length: 60 in. BMI: 40.2 ALLERGIES: No Known Drug Allergy The patient's Home Medications are listed below: NONE. The source(s) of the original Home Medication information: Not obtained. The following Medications were given to the patient in the Emergency Department: Zofran [IVP] IVP 4 mg, administered: 04/24/2017 4:08:00 AM GI COCKTAIL WHITE [PO] PO 50 mL, administered: 04/24/2017 4:13:00 AM IV NS IV Fluids bolus 0, then 500 mL/hr, administered: 04/24/2017 4:15:00 AM Carafate [PO] PO 2 gm, administered: 04/24/2017 4:35:00 AM GI COCKTAIL WHITE [PO] PO 30 mL, administered: 04/24/2017 5:43:00 AM Protonix [PO] PO 40 mg, administered: 04/24/2017 5:44:00 AM The following Medications were prescribed to the patient: Zofran (orally disintegrating tablets) 4 mg: take 1 orally every 6 hours as needed for nausea. Dispense ten (10). No refill. -- Mikhail Irwin MD Carafate take 1 orally four times daily (before meals and at bedtime) for 10 days. Dispense forty (40). No refills. -- Mikhail Irwin MD Prilosec 40 mg capsules: take 1 capsule orally every day for 10 days. Dispense ten (10). No refill. -- Mikhail Irwin MD
--- NOTE | 2017-04-25 23:26 | ED MAR SUMMARY ---
..... Medication Administration Record [facility] [address] [place] [address] Patient: ELVIRA MARSH Visit ID: [id number] 21y, F Weight: 93.4 kg Height/Length: 60 in BMI: 40.2 ALLERGIES: No Known Drug Allergy Given 04:08 04/24/2017 Puja Velázquez R.N. Medication Administered: ZOFRAN [IVP] (ONDANSETRON HCL), Dose: 4 mg IVP over 2 minute(s), Site: #1 right AC. Medication Ordered: Zofran IV 4 mg (NOW). Given 04:13 04/24/2017 Puja Velázquez R.N. Medication Administered: GI COCKTAIL WHITE [PO] (SIMETHICONE), Dose: 50 mL Oral Suspension PO. Medication Ordered: GI Cocktail WHITE PO 50 mL (NOW). Start 04:15 04/24/2017 Puja Velázquez R.N., Stop 05:46 04/24/2017 Puja Velázquez R.N. Medication Administered: IV NS (SALINE), Dose: IV Fluids over 2 hour(s), Rate: 500 mL/hr, Dispensed: 1000 mL bag, Site: #1 right AC. Medication Ordered: IV NS : initial bolus none -, then 500 mL/hr for 2h (NOW); Routine. Given 04:35 04/24/2017 Sarika Patten R.N. Medication Administered: CARAFATE [PO] (SUCRALFATE), Dose: 2 gm Oral Suspension PO. Medication Ordered: Carafate PO 20 ml (NOW). Given 05:43 04/24/2017 Puja Velázquez R.N. Medication Administered: GI COCKTAIL WHITE [PO] (SIMETHICONE), Dose: 30 mL Oral Suspension PO. Medication Ordered: GI Cocktail WHITE PO 30 mL (NOW). Given 05:44 04/24/2017 Puja Velázquez R.N. Medication Administered: PROTONIX [PO] (PANTOPRAZOLE SODIUM), Dose: 40 mg Tablets PO. Medication Ordered: Protonix PO 40 mg (NOW).
--- NOTE | 2017-04-25 23:26 | ED MED RECONCILIATION SUMMARY ---
Patient: ELVIRA MARSH Medication Reconciliation Report [facility] VisitID: [id number] [place] [address] 21y, F Registration Date/Time: 04/24/2017 Weight: 93.4 kg Height/Length: 60 in. BMI: 40.2 ALLERGIES: No Known Drug Allergy The patient's Home Medications are listed below: NONE. The source(s) of the original Home Medication information: Not obtained. The following Medications were given to the patient in the Emergency Department: Zofran [IVP] IVP 4 mg, administered: 04/24/2017 4:08:00 AM GI COCKTAIL WHITE [PO] PO 50 mL, administered: 04/24/2017 4:13:00 AM IV NS IV Fluids bolus 0, then 500 mL/hr, administered: 04/24/2017 4:15:00 AM Carafate [PO] PO 2 gm, administered: 04/24/2017 4:35:00 AM GI COCKTAIL WHITE [PO] PO 30 mL, administered: 04/24/2017 5:43:00 AM Protonix [PO] PO 40 mg, administered: 04/24/2017 5:44:00 AM The following Medications were prescribed to the patient: Zofran (orally disintegrating tablets) 4 mg: take 1 orally every 6 hours as needed for nausea. Dispense ten (10). No refill. -- Mikhail Irwin MD Carafate take 1 orally four times daily (before meals and at bedtime) for 10 days. Dispense forty (40). No refills. -- Mikhail Irwin MD Prilosec 40 mg capsules: take 1 capsule orally every day for 10 days. Dispense ten (10). No refill. -- Mikhail Irwin MD
== END 2017-04-24 05:50 | disposition home or self-care (01) ==
LOC: ED SRH 03:33 → EDBD 03:35 → ED SRH 05:50
DX: O99.613 Diseases of the digestive system complicating pregnancy, third trimester (principal); K21.0 Gastro-esophageal reflux disease with esophagitis; F43.9 Reaction to severe stress, unspecified; Z3A.29 29 weeks gestation of pregnancy
CPT/HCPCS: 90100; 90197; 92235; 92530; 92760; 92761; 92762; 92763; 92764; 92765; 92766; 92767; 95059